=== PATIENT | male | born 1955 | race Caucasian/White ===

== ENCOUNTER 2018-05-14 10:45 | Emergency (ER) | payer OTHER ==
[~2018-05-14] VITALS: Ht 180.3 cm; Wt 106.6 kg
[~2018-05-14 10:45] MED LIST: ALENDRONATE SOD70 M1 PO; BAY PO; CALCIUM600 M1 PO; HYD25 PO; JARDIANCE10 MG PO; LISINOPRIL10 MG PO; METFORMIN HCL1000 M1 PO; NOVOLIN 70/301.5 M1 SQ; OMEPRAZOLE DR20 M1 PO; Q-VAR INH; VYTORIN 10 MG-81 TAB PO; XALATAN2.5 ML OP; ZES20 PO; [UNRECOGNIZED DRUG - OTHER]
[2018-05-14 10:49] VITALS: Ht 180.3 cm; Wt 106.6 kg
[2018-05-14 11:46] VITALS: BP 135/82
== END 2018-05-14 11:47 | disposition home or self-care (01) ==
LOC: ED 10:45
DX: S20.212A Contusion of left front wall of thorax, initial encounter (principal); I10 Essential (primary) hypertension; E11.9 Type 2 diabetes mellitus without complications; Z88.0 Allergy status to penicillin; Z88.2 Allergy status to sulfonamides; W01.0XXA Fall on same level from slipping, tripping and stumbling without subsequent striking against object, initial encounter; Y93.89 Activity, other specified; Y92.89 Other specified places as the place of occurrence of the external cause; Y99.8 Other external cause status